=== PATIENT | female | born 1960 | race Caucasian/White ===

== ENCOUNTER → 2021-05-31 | Outpatient (CLI) | payer OTHER ==
--- NOTE | 2021-05-31 14:32 | 2DMMODE ---
[facility] [place] [address] 2 D/M-MODE ECHOCARDIOGRAM Name: CHRISTINA DODSON Room #: REG [facility]#: [id number] Admission: 05/31/21 Attend Phys: Physician not on staff Discharge: Date of : 56 Report #: [id number] THIS REPORT FOR: cc: Ilia Daniel MD, FAAFP, FACEP, Douglas MD FAAFP FACEP Lundgren, Craig H. MD [facility] ~ APPROVED REPORT Study performed: 05/31/2021 13:05:05 EXAM: Comprehensive 2D, Doppler, and color-flow Echocardiogram Patient Location: Out-Patient Status: routine BSA: 1.85 HR: 88 bpm Rhythm: NSR Other Information Study Quality: Adequate Technically limited study due to pectus. Indications History of bicuspid aortic valve, ascending aorta aneurysm. 2D Dimensions IVSd: 7.90 (7-11mm) LVOT Diam: 20.82 (18-24mm) LVDd: 44.75 mm PWd: 9.61 (7-11mm) Ascending Ao: 41.54 (22-36mm) LVDs: 26.75 (25-40mm) Left Atrium: 32.38 (27-40mm) Aortic Root: 38.50 mm Volumes Left Atrial Volume (Systole) Single Plane 4CH: 35.53 mL Single Plane 2CH: 32.65 mL LA ESV Index: 20.00 mL/m2 Aortic Valve AoV Peak Ochoa.: 1.99 m/s AO Peak Gr.: 15.85 mmHg LVOT Max P.71 mmHg AO Mean Gr.: 8.74 mmHg AO V2 Mean: 1.41 m/s LVOT Max V: 1.09 m/s [facility] [address] [place] [address] 2 D/M-MODE ECHOCARDIOGRAM Name: WESTCHRISTINA L Room #: [facility]#: [id number] Admission: 05/31/21 Attend Phys: Physician not on s Discharge: Date of : 56 Report #: [id number] AO V2 VTI: 37.60 cm YUNG Vmax: 1.86 cm2 AI Vmax: 3.92 m/s AI [place]: 4.26 m/s2 AI PHT: 267.12 ms Mitral Valve E/A Ratio: 0.7 MV Decel. Time: 225.57 ms MV E Max Ochoa.: 0.59 m/s MV A Ochoa.: 0.88 m/s MV PHT: 65.42 ms Pulmonary Valve PV Peak Ochoa.: 1.08 m/s PV Peak Gr.: 4.64 mmHg Tricuspid Valve RAP Estimate: 5.00 mmHg Left Ventricle The left ventricle is normal size. There is normal LV segmental wall motion. There is normal left ventricular wall thickness. Left ventricular systolic function is normal. LVEF is 60%. Mild diastolic dysfunction Right Ventricle The right ventricle is normal size. The right ventricular systolic function is normal. Atria The left atrium size is normal. The right atrium size is normal. Aortic Valve Aortic valve is bicuspid. Mild to moderate aortic regurgitation. There is very mild aortic stenosis. Calculated aortic valve area is 1.9 cm2 (maximum pressure gradient of 16 mmHg and mean pressure gradient of 9 mmHg). Mitral Valve The mitral valve is normal in structure. There is no mitral valve regurgitation noted. No evidence of mitral valve stenosis. Tricuspid Valve The tricuspid valve is normal in structure. There is no tricuspid valve regurgitation noted. Unable to assess PA pressure. [facility] [address] [place] [address] 2 D/M-MODE ECHOCARDIOGRAM Name: CHRISTINA DODSON Room #: REG [facility]#: [id number] Admission: 05/31/21 Attend Phys: Physician not on s Discharge: Date of : 56 Report #: [id number] Pulmonic Valve The pulmonary valve is normal in structure. Trace pulmonic regurgitation. Great Vessels Aortic root is mildly dilated (3.9cm). Ascending aorta is dilated (4.2cm). IVC is normal in size and collapses >50% with inspiration. Pericardium There is no pericardial effusion. <Conclusion> Left ventricular systolic function is normal. There is normal LV segmental wall motion. LVEF is 60%. Mild diastolic dysfunction Aortic valve is bicuspid. Very mild stenosis. Mild to moderate aortic regurgitation. Calculated aortic valve area is 1.9 cm2 (Peak gradient 16 mmHg, mean pressure gradient 9 mmHg). The mitral valve is normal in structure. No mitral valve regurgitation Unable to assess pulmononary artery pressure. Ascending aorta is dilated (4.2cm). There is no pericardial effusion. <ELECTRONICALLY SIGNED> By: Shaq Herndon MD, [facility] 05/31/21 [id number] Shaq Herndon MD, FACC /INF
== END ==
LOC: CV 10:32
DX: I35.8 Other nonrheumatic aortic valve disorders (principal); I51.7 Cardiomegaly; M25.78 Osteophyte, vertebrae; Q67.6 Pectus excavatum; I35.1 Nonrheumatic aortic (valve) insufficiency